=== PATIENT | male | born 1935 | race African-American/Black ===

== ENCOUNTER 2023-01-10 16:21 | Inpatient (IN) | payer MEDICARE ==
[2023-01-10] MEDS ORDERED: hydrALAZINE 20 MG/ML VIAL ONE (16:57)
[2023-01-10 17:02] LABS: #Eosinphils 0.1 thou/uL (0.0-0.7); #Monocytes 0.3 thou/uL (0.11-0.59); #Neutrophils 4.9 thou/uL (1.40-6.50); %Basophils 0.3 % (0.0-1.0); %Eosinophils 1.9 % (0.0-10.0); %Lymphocytes 19.8 % (21.0-51.0); %Neutrophils 72.9 % (42.0-75.0); Hemoglobin 14.1 g/dL (14.0-18.0); Mean Corpuscular HGB CONC 32.3 g/dL (32.0-36.0); Mean Corpuscular Hemoglobin 31.1 pg (27.0-31.0); Mean Corpuscular Volume 96.2 fl (78.0-98.0); Mean Platelet Volume 9.6 fL (7.4-10.4); Platelet Count 184 10x3/uL (130-400); RBC Distribution Width 12.6 % (11.5-14.5); Red Blood Cell (RBC) Count 4.53 mill/uL (4.70-6.10); White Blood Cell (WBC) Count 6.8 10x3/uL (4.8-10.8)
[2023-01-10] MEDS ORDERED: levETIRAcetam 500 MG/5 ML VIAL ONE (17:26)
[2023-01-10 17:28] LABS: ALT (SGPT) Less than 7 U/L (8-55); AST (SGOT) 11 U/L (5-34); Albumin 3.5 g/dL (3.4-4.8); Alkaline Phosphatase 70 U/L (40-110); Anion Gap 10 mmol/L (10-20); BUN (Urea Nitrogen) 18 mg/dL (8.4-25.7); Bilirubin, Total 0.3 mg/dL (0.2-1.2); Calc. Creatinine Clearance 0 mL/min (70-130); Calcium 9.8 mg/dL (7.8-10.44); Carbon Dioxide 28 mmol/L (23-31); Chloride 106 mmol/L (98-107); Estimated GFR 37; Globulin 3.1 g/dL (2.4-3.5); Glucose 134 mg/dL (83-110); Potassium 4.6 mmol/L (3.5-5.1); Protein, Total 6.6 g/dL (5.8-8.1); Sodium 139 mmol/L (136-145)
[2023-01-10 17:49] LABS: CKMB 0.6 ng/mL (0-6.6)
[2023-01-10] MEDS ORDERED: Nitroglycerin 2% Ointment 1 INCH/1 GM Packet ONE (18:00)
[2023-01-10] MEDS ORDERED: Aspirin Chewable 81 MG TAB ONE (18:00)
[2023-01-10] MEDS ORDERED: Acetaminophen 325 MG TAB PO PRN (18:31)
[2023-01-10] MEDS ORDERED: Ondansetron PF 4 MG/2 ML Vial IVP PRN (18:31)
[2023-01-10] MEDS ORDERED: Furosemide 40 MG/4 ML VIAL ONE (18:33)
[2023-01-10] MEDS ORDERED: Ipratropium/Albuterol 3 ML NEB EZPAP PRN (18:38)
[2023-01-10] MEDS ORDERED: niCARdipine 25 MG/10 ML SDV ONE (19:42)
[2023-01-10 21:18] LABS: Troponin I Less than 0.010 ng/mL (< 0.028)
[2023-01-10 22:17] VITALS: BMI 27.0
[2023-01-10] MEDS: Heparin 5,000 UNITS/ML VIAL SC SCH (22:32)
[2023-01-11 04:53] LABS: #Eosinphils 0.1 thou/uL (0.0-0.7); #Monocytes 0.5 thou/uL (0.11-0.59); #Neutrophils 4.4 thou/uL (1.40-6.50); %Basophils 0.2 % (0.0-1.0); %Eosinophils 1.1 % (0.0-10.0); %Lymphocytes 20.6 % (21.0-51.0); %Monocytes 7.2 % (0.0-10.0); %Neutrophils 70.7 % (42.0-75.0); Hemoglobin 14.6 g/dL (14.0-18.0); Mean Corpuscular HGB CONC 32.5 g/dL (32.0-36.0); Mean Corpuscular Hemoglobin 31.1 pg (27.0-31.0); Mean Corpuscular Volume 95.7 fl (78.0-98.0); Mean Platelet Volume 9.7 fL (7.4-10.4); Platelet Count 189 10x3/uL (130-400); RBC Distribution Width 12.5 % (11.5-14.5); Red Blood Cell (RBC) Count 4.69 mill/uL (4.70-6.10); White Blood Cell (WBC) Count 6.2 10x3/uL (4.8-10.8)
[2023-01-11 04:57] LABS: Anion Gap 13 mmol/L (10-20); BUN (Urea Nitrogen) 19 mg/dL (8.4-25.7); Calc. Creatinine Clearance 47 mL/min (70-130); Calcium 9.1 mg/dL (7.8-10.44); Carbon Dioxide 28 mmol/L (23-31); Chloride 104 mmol/L (98-107); Estimated GFR 44; Glucose 105 mg/dL (83-110); Sodium 141 mmol/L (136-145)
[2023-01-11] MEDS: Furosemide 40 MG/4 ML VIAL SLOW IVP SCH ×2 (05:53→14:44)
[2023-01-11] MEDS: Heparin 5,000 UNITS/ML VIAL SC SCH ×2 (09:13→20:09)
[2023-01-11] MEDS: levETIRAcetam 500 MG TAB PO SCH ×2 (09:17→20:09)
[2023-01-12 03:19] VITALS: BP 152/80
[2023-01-12 04:48] LABS: #Eosinphils 0.1 thou/uL (0.0-0.7); #Monocytes 0.5 thou/uL (0.11-0.59); #Neutrophils 3.5 thou/uL (1.40-6.50); %Basophils 0.2 % (0.0-1.0); %Eosinophils 2.1 % (0.0-10.0); %Lymphocytes 26.9 % (21.0-51.0); %Neutrophils 61.4 % (42.0-75.0); Mean Corpuscular HGB CONC 32.6 g/dL (32.0-36.0); Mean Corpuscular Hemoglobin 31.3 pg (27.0-31.0); Mean Platelet Volume 10.2 fL (7.4-10.4); Platelet Count 176 10x3/uL (130-400); RBC Distribution Width 12.6 % (11.5-14.5); Red Blood Cell (RBC) Count 4.47 mill/uL (4.70-6.10); White Blood Cell (WBC) Count 5.7 10x3/uL (4.8-10.8)
[2023-01-12 05:15] LABS: Anion Gap 16 mmol/L (10-20); BUN (Urea Nitrogen) 22 mg/dL (8.4-25.7); Calc. Creatinine Clearance 41 mL/min (70-130); Calcium 8.7 mg/dL (7.8-10.44); Carbon Dioxide 25 mmol/L (23-31); Chloride 105 mmol/L (98-107); Estimated GFR 37; Glucose 98 mg/dL (83-110); Potassium 3.6 mmol/L (3.5-5.1); Sodium 142 mmol/L (136-145)
[2023-01-12] MEDS: Furosemide 40 MG/4 ML VIAL SLOW IVP SCH (06:20)
[2023-01-12 07:34] VITALS: TEMP 97.7
[2023-01-12] MEDS: Heparin 5,000 UNITS/ML VIAL SC SCH (08:58)
[2023-01-12] MEDS: levETIRAcetam 500 MG TAB PO SCH (08:59)
== END 2023-01-12 12:04 | disposition home or self-care (01) | DRG 100 ==
LOC: ERS 16:21 → 2NO 18:34
PROVIDERS: ADMIT Internal Medicine; ATTEND Internal Medicine
DX: R56.9 Unspecified convulsions (principal); I21.A1 Myocardial infarction type 2; I50.33 Acute on chronic diastolic (congestive) heart failure; N17.9 Acute kidney failure, unspecified; I16.0 Hypertensive urgency; I11.0 Hypertensive heart disease with heart failure; J44.9 Chronic obstructive pulmonary disease, unspecified; F17.210 Nicotine dependence, cigarettes, uncomplicated; Z79.899 Other long term (current) drug therapy; Z91.013 Allergy to seafood; Z90.49 Acquired absence of other specified parts of digestive tract; Z83.3 Family history of diabetes mellitus
CPT/HCPCS: 36415; 70450; 71045; 80048; 80053; 80177; 82553; 83605; 83880; 84146; 84443; 84484; 85025; 93005; 93306; 96365; 96375; J0360; J1644; J1940; J1953

== ENCOUNTER 2024-07-16 20:02 | Inpatient (IN) | payer MEDICAID, MEDICARE, OTHER ==
[2024-07-16 20:31] LABS: #Basophils Less than 0.03 10x3/uL (0.0-0.2); #Eosinophils Less than 0.03 10x3/uL (0.0-0.7); %Basophils 0.1 % (0.0-1.0); %Eosinophils 0.1 % (0.0-10.0); %Lymphocytes 4.6 % (21.0-51.0); %Monocytes 5.3 % (0.0-10.0); %Neutrophils 88.5 % (42.0-75.0); Hematocrit 41.4 % (42.0-52.0); Hemoglobin 13.9 g/dL (14.0-18.0); Mean Corpuscular HGB CONC 33.6 g/dL (32.0-36.0); Mean Corpuscular Volume 95.4 fL (78.0-98.0); Mean Platelet Volume 9.9 fL (7.4-10.4); Platelet Count 186 10x3/uL (130-400); RBC Distribution Width 13.3 % (11.5-14.5); Red Blood Cell (RBC) Count 4.34 mill/uL (4.70-6.10)
[2024-07-16] MEDS ORDERED: methylPREDNISolone Sod Succ 40 MG VIAL ONE (20:33)
[2024-07-16] MEDS ORDERED: diphenhydrAMINE 50 MG/ML VIAL ONE (20:33)
[2024-07-16] MEDS ORDERED: Famotidine/PF 20 mg/2ml Vial ONE (20:35)
[2024-07-16 20:44] LABS: INR-International Normal Ratio 1.1; PTT 31.8 sec (22.9-36.1); Prothrombin Time 14.4 sec (12.0-14.7)
[2024-07-16 20:47] LABS: ALT (SGPT) 6 U/L (8-55); AST (SGOT) 11 U/L (5-34); Alkaline Phosphatase 74 U/L (40-110); Anion Gap 13 mmol/L (10-20); BUN (Urea Nitrogen) 14 mg/dL (8.4-25.7); Bilirubin, Total 0.5 mg/dL (0.2-1.2); Calc. Creatinine Clearance 0 mL/min (70-130); Calcium 8.5 mg/dL (7.8-10.44); Carbon Dioxide 26 mmol/L (23-31); Chloride 108 mmol/L (98-107); Estimated GFR 51; Globulin 3.2 g/dL (2.4-3.5); Glucose 171 mg/dL (83-110); Protein, Total 6.2 g/dL (5.8-8.1); Sodium 143 mmol/L (136-145)
[2024-07-16 20:52] LABS: Troponin I Less than 0.010 ng/mL (< 0.028)
[2024-07-16 21:02] LABS: Magnesium 1.8 mg/dL (1.6-2.6)
[2024-07-16] MEDS ORDERED: Cefepime 2 GM VIAL ONE (21:25)
[2024-07-16] MEDS ORDERED: Sodium Chloride 0.9% 100 ML ONE (21:25)
[2024-07-16] MEDS ORDERED: Metoprolol Tartrate 5 MG (5 mL) VIAL ONE (22:36)
[2024-07-16] MEDS ORDERED: Furosemide 40 MG (4 mL) VIAL ONE (22:36)
[2024-07-16] MEDS ORDERED: Aspirin Chewable 81 MG TAB ONE (22:36)
[2024-07-16] MEDS ORDERED: Lorazepam 2 MG/ML VIAL ONE (23:04)
[2024-07-16] MEDS ORDERED: levETIRAcetam 500 MG (5 mL) VIAL ONE (23:04)
[2024-07-16 23:34] LABS: Bacteria/HPF None Seen HPF (None Seen); Bilirubin Negative (Negative); Blood, Urine 3+ (Negative); CAUTI Indications for Culture Alt mental st,lethar; Clarity Clear (Clear); Glucose, Urine (Dipstick) Normal (Negative); Ketone, Urine Trace mg/dL (Negative); Leukocyte Negative Leu/uL (Negative); Nitrite Negative (Negative); Protein, Urine (Dipstick) 10 mg/dL (Neg-Trace); Specific Gravity, Urine 1.026 (1.002-1.036); Squamous Epithelial 0-3 HPF (0-3); Urobilinogen Normal mg/dL (Less than 2)
[2024-07-16 23:35] LABS: Urine Culture Reflex Yes Yes
[2024-07-17] MEDS ORDERED: LORazepam 2 MG/ML SYR.(CARPUJECT) ONE (00:26)
[2024-07-17] MEDS ORDERED: Ondansetron PF 4 MG/2 ML Vial IVP PRN (03:28)
[2024-07-17] MEDS ORDERED: Acetaminophen 650 MG Suppository PR PRN (03:28)
[2024-07-17] MEDS ORDERED: Calcium Carbonate 500 MG ChewTAB PO PRN (03:28)
[2024-07-17] MEDS ORDERED: Senokot S 8.6-50 MG TAB PO PRN (03:28)
[2024-07-17] MEDS ORDERED: Acetaminophen 325 MG TAB PO PRN (03:28)
[2024-07-17] MEDS ORDERED: Ondansetron ODT 4 MG TAB PO PRN (03:28)
[2024-07-17] MEDS ORDERED: Lorazepam 2 MG/ML VIAL SLOW IVP PRN (03:31)
[2024-07-17] MEDS ORDERED: Ipratropium/Albuterol 3 ML NEB NEB PRN (05:18)
[2024-07-17] MEDS: Vancomycin (BATCH) 2 GM in Premix 1 BAG IVPB SCH (05:18)
[2024-07-17] MEDS: Lactated Ringer's 1,000 ML IV SCH (05:18)
[2024-07-17] MEDS: Piperacillin/Tazobactam 3.375 GM in Sodium Chloride 0.9% 100 ML IVPB SCH ×2 (05:19→09:37)
[2024-07-17] MEDS: hydrALAZINE 20 MG/ML VIAL SLOW IVP PRN (05:20)
[2024-07-17 07:32] LABS: ALT (SGPT) 6 U/L (8-55); AST (SGOT) 12 U/L (5-34); Alkaline Phosphatase 73 U/L (40-110); Anion Gap 15 mmol/L (10-20); BUN (Urea Nitrogen) 14 mg/dL (8.4-25.7); Bilirubin, Total 0.6 mg/dL (0.2-1.2); Calc. Creatinine Clearance 53 mL/min (70-130); Calcium 8.5 mg/dL (7.8-10.44); Carbon Dioxide 23 mmol/L (23-31); Chloride 109 mmol/L (98-107); Estimated GFR 54; Globulin 3.7 g/dL (2.4-3.5); Glucose 152 mg/dL (83-110); Magnesium 1.8 mg/dL (1.6-2.6); Phosphorus 1.8 mg/dL (2.3-4.7); Potassium 3.9 mmol/L (3.5-5.1); Protein, Total 6.7 g/dL (5.8-8.1); Sodium 143 mmol/L (136-145)
[2024-07-17 07:36] LABS: #Basophils 0.03 10x3/uL (0.0-0.2); #Eosinophils Less than 0.03 10x3/uL (0.0-0.7); %Basophils 0.1 % (0.0-1.0); %Lymphocytes 4.7 % (21.0-51.0); %Monocytes 3.4 % (0.0-10.0); %Neutrophils 90.5 % (42.0-75.0); Hemoglobin 15.3 g/dL (14.0-18.0); Mean Corpuscular HGB CONC 33.3 g/dL (32.0-36.0); Mean Corpuscular Hemoglobin 31.2 pg (27.0-31.0); Mean Corpuscular Volume 93.7 fL (78.0-98.0); Mean Platelet Volume 10.6 fL (7.4-10.4); Platelet Count 154 10x3/uL (130-400); RBC Distribution Width 13.5 % (11.5-14.5); Red Blood Cell (RBC) Count 4.91 mill/uL (4.70-6.10)
[2024-07-17] MEDS ORDERED: Aspirin 300 MG Suppository PR SCH (09:00)
[2024-07-17] MEDS: levETIRAcetam 500 MG (5 mL) VIAL SLOW IVP SCH (09:35)
[2024-07-17] MEDS: Aspirin 300 MG Suppository PR SCH (09:35)
[2024-07-17] MEDS: Doxycycline 100 MG CAP PO SCH (09:35)
[2024-07-17] MEDS: Famotidine/PF 20 mg/2ml Vial SLOW IVP SCH (09:36)
[2024-07-17] MEDS: Famotidine 20 MG TAB PO SCH (18:15)
[2024-07-17] MEDS ORDERED: Electrolyte Replacement Protocol FS SCH (19:20)
[2024-07-17] MEDS: Magnesium 2 GM/50 ML(in water) 2 GM in Premix 1 BAG IVPB SCH (20:38)
[2024-07-17] MEDS: Enoxaparin 40 MG (0.4 mL) SYRINGE SC SCH (20:41)
[2024-07-17] MEDS: Potassium Phosphate 15 MMOL in Sodium Chloride 0.9% 250 ML 250 ML IVPB SCH (20:41)
[2024-07-17] MEDS: Atorvastatin Calcium 40 MG TAB PO SCH (20:42)
[2024-07-17 23:10] VITALS: BMI 25.9
[2024-07-18 04:31] LABS: #Basophils Less than 0.03 10x3/uL (0.0-0.2); #Eosinophils Less than 0.03 10x3/uL (0.0-0.7); %Basophils 0.1 % (0.0-1.0); %Eosinophils 0.1 % (0.0-10.0); %Lymphocytes 7.9 % (21.0-51.0); %Monocytes 6.7 % (0.0-10.0); %Neutrophils 84.6 % (42.0-75.0); Hematocrit 40.8 % (42.0-52.0); Hemoglobin 13.7 g/dL (14.0-18.0); Mean Corpuscular HGB CONC 33.6 g/dL (32.0-36.0); Mean Corpuscular Hemoglobin 31.5 pg (27.0-31.0); Mean Corpuscular Volume 93.8 fL (78.0-98.0); Mean Platelet Volume 11.3 fL (7.4-10.4); Platelet Count 214 10x3/uL (130-400); RBC Distribution Width 13.6 % (11.5-14.5); Red Blood Cell (RBC) Count 4.35 mill/uL (4.70-6.10)
[2024-07-18 05:08] LABS: Phosphorus 2.8 mg/dL (2.3-4.7)
[2024-07-18] MEDS: Levothyroxine Sodium 100 MCG TAB PO SCH (06:20)
[2024-07-18 07:50] LABS: Chloride 109 mmol/L (98-107); Potassium 3.6 mmol/L (3.5-5.1); Sodium 143 mmol/L (136-145)
[2024-07-18 07:51] LABS: Albumin 2.5 g/dL (3.4-4.8); Calcium 8.3 mg/dL (7.8-10.44)
[2024-07-18 07:52] LABS: Globulin 3.1 g/dL (2.4-3.5); Glucose 111 mg/dL (83-110); Protein, Total 5.6 g/dL (5.8-8.1)
[2024-07-18 07:53] LABS: Anion Gap 13 mmol/L (10-20); Carbon Dioxide 25 mmol/L (23-31); Triglycerides 42 mg/dL (Less than 150)
[2024-07-18 07:55] LABS: Alkaline Phosphatase 59 U/L (40-110); Bilirubin, Total 0.4 mg/dL (0.2-1.2)
[2024-07-18 07:56] LABS: BUN (Urea Nitrogen) 17 mg/dL (8.4-25.7); Calc. Creatinine Clearance 46 mL/min (70-130); Estimated GFR 45
[2024-07-18 07:57] LABS: ALT (SGPT) 5 U/L (8-55); AST (SGOT) 11 U/L (5-34); Cholesterol 92 mg/dl (< 200 Desired); Magnesium 2.2 mg/dL (1.6-2.6)
[2024-07-18 07:58] LABS: Cardiac Risk 2.1 (Less than 4.5); HDL Cholesterol 44 mg/dL (>60 Neg Risk); LDL Cholesterol, Calculated 40 mg/dL
[2024-07-18] MEDS ORDERED: Hydrochlorothiazide 25 MG TAB PO SCH (09:00)
[2024-07-18] MEDS: Furosemide 20 MG TAB PO SCH (09:42)
[2024-07-18] MEDS: Valsartan 80 MG TAB PO SCH (09:42)
[2024-07-19 14:30] VITALS: BMI 25.9
[2024-07-19 16:23] VITALS: BP 144/90; TEMP 97.7
[2024-07-19] MEDS ORDERED: Amoxicillin/Potassium Clav 875 MG TAB PO SCH (21:00)
[2024-07-20] MEDS ORDERED: FLU (Fluad Triv) TS24-25 (65UP)/MF59C/PF 45 MCG/0.5 ML Syringe IM ONE (09:00)
== END 2024-07-19 18:38 | disposition home health service (06) | DRG 871 ==
LOC: ERS 20:02 → IMCU/EMU 07-17 00:55 → 2SE 07-17 17:48
PROVIDERS: ADMIT Internal Medicine; ATTEND Family Medicine
DX: A41.9 Sepsis, unspecified organism (principal); G93.41 Metabolic encephalopathy; J96.01 Acute respiratory failure with hypoxia; J69.0 Pneumonitis due to inhalation of food and vomit; I13.0 Hypertensive heart and chronic kidney disease with heart failure and stage 1 through stage 4 chronic kidney disease, or unspecified chronic kidney disease; N39.0 Urinary tract infection, site not specified; G40.909 Epilepsy, unspecified, not intractable, without status epilepticus; R65.20 Severe sepsis without septic shock; J44.9 Chronic obstructive pulmonary disease, unspecified; N18.30 Chronic kidney disease, stage 3 unspecified; E83.42 Hypomagnesemia; Z86.73 Personal history of transient ischemic attack (TIA), and cerebral infarction without residual deficits; Z85.46 Personal history of malignant neoplasm of prostate
CPT/HCPCS: 36415; 36416; 70450; 70496; 70498; 71045; 71250; 80053; 80061; 81001; 83605; 83735; 83880; 84100; 84146; 84443; 84484; 85025; 85610; 85730; 87040; 87086; 93005; 93306; 93970; 94760; 95705; 96361; 96365; 96366; 96367; 96368; 96375; 96376; J0360; J0692; J1200; J1650; J1940; J1953; J2060; J2543; J2919; J3370; J3475; J3490; J7050; J7120